=== PATIENT | male | born 1995 | race Caucasian/White ===

== ENCOUNTER 2020-05-23 05:48 | Emergency (ER) | payer MEDICAID ==
[~2020-05-23] VITALS: Ht 177.8 cm; Wt 75.0 kg
[2020-05-23 11:30] VITALS: BP 108/60
== END 2020-05-23 11:56 | disposition home or self-care (01) ==
LOC: ER 06:06
DX: F32.9 Major depressive disorder, single episode, unspecified (principal); F90.9 Attention-deficit hyperactivity disorder, unspecified type
CPT/HCPCS: 99283